=== PATIENT | female | born 1975 | race Caucasian/White ===

== ENCOUNTER 2017-11-28 21:05 | Emergency (ER) | payer BC, OTHER ==
[2017-11-28 22:24] LABS: #Basophils 0.1 thou/uL (0.0-0.2); #Eosinphils 0.1 thou/uL (0.0-0.7); #Lymphocytes 1.9 thou/uL (1.20-3.40); #Monocytes 0.7 thou/uL (0.11-0.59); #Neutrophils 2.9 thou/uL (1.40-6.50); %Basophils 0.9 % (0.0-1.0); %Eosinophils 1.2 % (0.0-10.0); %Lymphocytes 33.9 % (21.0-51.0); %Monocytes 12.7 % (0.0-10.0); %Neutrophils 51.3 % (42.0-75.0); Hemoglobin 14.8 g/dL (12.0-16.0); Mean Corpuscular HGB CONC 34.9 g/dL (32.0-36.0); Mean Corpuscular Hemoglobin 35.3 pg (27.0-31.0); Platelet Count 161 thou/uL (130-400); RBC Distribution Width 10.8 % (11.5-14.5); Red Blood Cell (RBC) Count 4.18 mill/uL (4.20-5.40); White Blood Cell (WBC) Count 5.7 thou/uL (4.8-10.8)
[2017-11-28 22:44] LABS: ALT (SGPT) 64 U/L (8-55); AST (SGOT) 72 U/L (5-34); Acetaminophen Less than 6.0 mcg/mL (10.0-30.0); Albumin 4.7 g/dL (3.5-5.0); Alcohol 273 mg/dL (Less than 10); Alkaline Phosphatase 39 U/L (40-150); Anion Gap 19 mmol/L (10-20); BUN (Urea Nitrogen) 20 mg/dL (7.0-18.7); Bilirubin, Total 0.6 mg/dL (0.2-1.2); CK (CPK) 103 U/L (29-168); Calc. Creatinine Clearance 0 mL/min (70-130); Calcium 9.5 mg/dL (7.8-10.44); Carbon Dioxide 24 mmol/L (22-29); Chloride 98 mmol/L (98-107); Estimated GFR-MDRD 67; Globulin 3.7 g/dL (2.4-3.5); Glucose 93 mg/dL (70-105); Protein, Total 8.4 g/dL (6.0-8.3); Salicylate Less than 8.0 mg/dL (15.0-30.0); Sodium 139 mmol/L (136-145)
[2017-11-28 22:44] LABS: Bilirubin Negative (Negative); Blood, Urine Negative (Negative); Clarity CLEAR (Clear); Glucose, Urine (Dipstick) Negative (Negative); Leukocyte Negative (Negative); Nitrite Negative (Negative); Protein, Urine (Dipstick) Negative (Neg-Trace); Specific Gravity, Urine 1.006 (1.002-1.036); Urobilinogen 0.2 mg/dL (0.2-1.0); pH, Urine 6.5 (5.0-9.0)
[2017-11-28 22:45] LABS: Pregnancy Test - Urine (BHCG) Negative (Negative); Pregu Control Background? CLEAR/WHITE (CLR/WHITE); Pregu Control Bar Appear? YES (CONTROL BAR); Specific Gravity 1.006 (1.002-1.036)
[2017-11-28 22:49] LABS: Potassium 2.4 mmol/L (3.5-5.1)
[2017-11-28 22:53] LABS: Amphetamine Not Detected (NotDetected); Barbiturates Screen Not Detected (NotDetected); Benzodiazepine Screen Detected (NotDetected); Cocaine Metabolite Screen Not Detected (NotDetected); Medtox Control Line Valid? VALID (VALID); Medtox Reader # READER 1; Methadone Not Detected (NotDetected); Methamphetamine Not Detected (NotDetected); Opiate Screen Not Detected (NotDetected); Oxycodone Screen Not Detected (NotDetected); Phencyclidine (PCP) Not Detected (NotDetected); THC/Cannabinoid Screen Not Detected (NotDetected); Tricyclic Screen Not Detected (NotDetected)
[2017-11-28] MEDS ORDERED: Potassium Chloride 20 MEQ TAB ONE (22:58)
--- NOTE | 2017-12-03 00:26 | EKG ---
Test Reason : Blood Pressure : / mmHG Vent. Rate : 087 BPM Atrial Rate : 087 BPM P-R Int : 118 ms QRS Dur : 084 ms QT Int : 390 ms P-R-T Axes : 068 057 060 degrees QTc Int : 469 ms Normal sinus rhythm Possible Left atrial enlargement Borderline ECG Confirmed by THAIS ORTIZ ([id number]), proposal editor ROSALINA JOSE ([id number] on 12/03/2017 12:25:27 AM Referred By: Confirmed By:THAIS ORTIZ
== END 2017-11-29 12:50 | disposition home or self-care (01) ==
LOC: ERS 21:05
DX: F43.20 Adjustment disorder, unspecified (principal); R44.0 Auditory hallucinations; F41.9 Anxiety disorder, unspecified
CPT/HCPCS: 36415; 80053; 80306; 80307; 81003; 81025; 82550; 84443; 85025; 93005; 96361; 96374

== ENCOUNTER 2020-01-24 22:13 | Inpatient (IN) | payer OTHER, SELFPAY ==
[2020-01-24 23:24] LABS: #Lymphocytes 0.8 thou/uL (1.20-3.40); #Monocytes 0.3 thou/uL (0.11-0.59); #Neutrophils 8.1 thou/uL (1.40-6.50); %Basophils 0.1 % (0.0-1.0); %Eosinophils 0.1 % (0.0-10.0); %Lymphocytes 8.2 % (21.0-51.0); %Monocytes 3.3 % (0.0-10.0); %Neutrophils 88.2 % (42.0-75.0); Hemoglobin 12.5 g/dL (12.0-16.0); MDiff Complete? YES; Macrocytosis SLIGHT = 6-15 cells (100X) (0-5/hpf); Mean Corpuscular HGB CONC 32.7 g/dL (32.0-36.0); Mean Corpuscular Hemoglobin 35.5 pg (27.0-31.0); Mean Platelet Volume 8.1 fL (7.4-10.4); Platelet Count 97 thou/uL (130-400); Platelet Morphology Comment Appears Decreased; RBC Distribution Width 11.7 % (11.5-14.5); Red Blood Cell (RBC) Count 3.52 mill/uL (4.20-5.40); White Blood Cell (WBC) Count 9.2 thou/uL (4.8-10.8)
[2020-01-24 23:26] LABS: Bacteria/HPF None Seen HPF (None Seen); Bilirubin Negative (Negative); Blood, Urine Trace (Negative); Clarity Clear (Clear); Glucose, Urine (Dipstick) Normal (Negative); Leukocyte Negative Leu/uL (Negative); Nitrite Negative (Negative); Protein, Urine (Dipstick) 100 mg/dL (Neg-Trace); RBC/HPF None Seen HPF (0-3); Urobilinogen Normal mg/dL (Less than 2); WBC/HPF 0-3 HPF (0-3)
[2020-01-24 23:30] LABS: ALT (SGPT) 39 U/L (8-55); AST (SGOT) 75 U/L (5-34); Albumin 4.9 g/dL (3.5-5.0); Alkaline Phosphatase 39 U/L (40-110); Anion Gap 33 mmol/L (10-20); BUN (Urea Nitrogen) 9 mg/dL (7.0-18.7); Bilirubin, Total 1.2 mg/dL (0.2-1.2); Calc. Creatinine Clearance 0 mL/min (70-130); Calcium 8.4 mg/dL (7.8-10.44); Carbon Dioxide 14 mmol/L (22-29); Chloride 96 mmol/L (98-107); Estimated GFR-MDRD 76; Globulin 3.7 g/dL (2.4-3.5); Glucose 140 mg/dL (70-105); Lipase 42 U/L (8-78); Potassium 3.5 mmol/L (3.5-5.1); Protein, Total 8.6 g/dL (6.0-8.3); Sodium 139 mmol/L (136-145)
[2020-01-24] MEDS ORDERED: Ondansetron PF 4 MG/2 ML Vial ONE (23:40)
[2020-01-24 23:44] LABS: Pregnancy Test - Urine (BHCG) Negative (Negative); Pregu Control Background? CLEAR/WHITE (CLR/WHITE); Pregu Control Bar Appear? YES (CONTROL BAR)
[2020-01-25] MEDS ORDERED: Ondansetron PF 4 MG/2 ML Vial ONE (00:25)
[2020-01-25] MEDS ORDERED: Lorazepam 2 MG/ML VIAL ONE (00:34)
[2020-01-25] MEDS ORDERED: Multivitamins, Adult 10 ML, Thiamine HCl 100 MG, Folic Acid 1 MG in Dextrose 5 %-0.45 %... IV SCH (01:00)
[2020-01-25] MEDS ORDERED: Ondansetron PF 4 MG/2 ML Vial IVP PRN (01:47)
[2020-01-25 02:08] LABS: #Basophils 0.1 thou/uL (0.0-0.2); #Lymphocytes 0.4 thou/uL (1.20-3.40); #Monocytes 0.4 thou/uL (0.11-0.59); %Basophils 0.7 % (0.0-1.0); %Eosinophils 0.1 % (0.0-10.0); %Lymphocytes 4.6 % (21.0-51.0); %Monocytes 5.1 % (0.0-10.0); %Neutrophils 89.5 % (42.0-75.0); Hemoglobin 11.8 g/dL (12.0-16.0); Mean Corpuscular HGB CONC 33.8 g/dL (32.0-36.0); Mean Corpuscular Hemoglobin 36.1 pg (27.0-31.0); Mean Platelet Volume 7.4 fL (7.4-10.4); Platelet Count 69 thou/uL (130-400); RBC Distribution Width 11.5 % (11.5-14.5); Red Blood Cell (RBC) Count 3.27 mill/uL (4.20-5.40); White Blood Cell (WBC) Count 7.9 thou/uL (4.8-10.8)
[2020-01-25] MEDS ORDERED: cloNIDine 0.1 MG TAB PO PRN (02:18)
[2020-01-25 02:36] LABS: ALT (SGPT) 36 U/L (8-55); AST (SGOT) 65 U/L (5-34); Albumin 4.7 g/dL (3.5-5.0); Alkaline Phosphatase 36 U/L (40-110); Anion Gap 25 mmol/L (10-20); BUN (Urea Nitrogen) 7 mg/dL (7.0-18.7); Bilirubin, Total 0.9 mg/dL (0.2-1.2); Calc. Creatinine Clearance 0 mL/min (70-130); Carbon Dioxide 14 mmol/L (22-29); Chloride 101 mmol/L (98-107); Estimated GFR-MDRD 85; Globulin 3.4 g/dL (2.4-3.5); Glucose 159 mg/dL (70-105); Potassium 3.9 mmol/L (3.5-5.1); Protein, Total 8.1 g/dL (6.0-8.3); Sodium 136 mmol/L (136-145)
[2020-01-25 03:11] VITALS: BMI 19.8
[2020-01-25] MEDS: Sodium Chloride 0.9% 1,000 ML IV SCH ×4 (05:18→20:14)
[2020-01-25] MEDS: Lorazepam 2 MG/ML VIAL SLOW IVP PRN ×2 (05:18→12:20)
[2020-01-25] MEDS ORDERED: Magnesium Sulfate 4 GM in Sodium Chloride 0.9% 250 ML 250 ML IVPB SCH (06:00)
--- NOTE | 2020-01-25 06:26 | HP ---
CHIEF COMPLAINT: Nausea and vomiting. HISTORY OF PRESENT ILLNESS: Ms. Sparrow is a 44-year-old female with past medical history of alcohol dependence/abuse, presents to the emergency room with intractable nausea and vomiting for the last 2 days. Symptoms worse today. The patient drinks alcohol daily, last drink was last night. Workup in the emergency room, the patient appears dehydrated, tremulous, anxious. The patient's labs showed elevated anion gap of 33, elevated ketones, elevated transaminases. The patient is on IV fluids, given Ativan, given IV Zofran. The patient is being admitted in the hospital for further management. PAST MEDICAL HISTORY: 1. Alcohol abuse/dependence. 2. Anxiety. PAST SURGICAL HISTORY: Reviewed and noncontributory. PAST PSYCHIATRIC HISTORY: Anxiety. SOCIAL HISTORY: She drinks alcohol daily, about 5 drinks per day. Denies other drug use. No smoking history. FAMILY HISTORY: Reviewed and noncontributory. HOME MEDICATIONS: Please see home medication reconciliation form for updated medications. REVIEW OF SYSTEMS: Review of 14 systems negative except what is mentioned in history of present illness. PHYSICAL EXAMINATION: GENERAL: The patient is awake, alert, in moderate distress, anxious, tremulous. VITAL SIGNS: Blood pressure 166/105, heart rate is 110, respiratory rate 20, oxygen saturation 99% on room air, temperature 98.5. HEAD AND NECK: Normocephalic, atraumatic. NECK: Supple. No JVD. CHEST: Fair bilateral air entry. HEART: S1, S2. Regular. ABDOMEN: Soft and nontender. Bowel sounds present. NEUROLOGIC: Awake, alert, oriented x4. No focal deficits. PSYCHIATRIC: Anxious. GENITOURINARY: No suprapubic tenderness. No flank tenderness. LABORATORY DATA: As mentioned above in history of present illness. ASSESSMENT: 1. Alcoholic ketoacidosis. 2. Alcohol dependence with withdrawal. 3. Hypertension. 4. Tachycardia. 5. Intractable nausea and vomiting. 6. Dehydration. 7. Anxiety. PLAN: 1. Admit to IMCU. 2. Fall and seizure precautions. 3. Continue IV fluid hydration. 4. IV benzodiazepine as needed. 5. Monitor and control blood pressure. 6. Reconcile home medications. 7. DVT prophylaxis as appropriate. 8. Expected length of stay, two midnights or more. Job ID: [id number]
[2020-01-25] MEDS: Magnesium Oxide 400 MG TAB PO SCH (08:02)
[2020-01-25] MEDS: Famotidine/PF 20 mg/2ml Vial SLOW IVP SCH ×2 (08:02→20:14)
[2020-01-25] MEDS: chlordiazePOXIDE HCl 25 MG CAP PO SCH ×3 (08:02→20:14)
[2020-01-25] MEDS ORDERED: Diazepam 5 MG TAB PO PRN (09:15)
[2020-01-25] MEDS ORDERED: Benzonatate 100 MG CAP PO PRN (09:18)
--- NOTE | 2020-01-25 10:17 | RAD ---
PORTABLE CHEST ONE VIEW: 01/25/2020 9:50 a.m. HISTORY: Cough. FINDINGS: The heart size is normal. The lungs are well expanded without lobar consolidation, pneumothoraces or pleural effusions. IMPRESSION: No acute process. POS: OFF
[2020-01-25] MEDS: Multivitamins, Adult 10 ML, Folic Acid 1 MG, Thiamine HCl 100 MG in Dextrose 5 %-0.45 %... IV SCH (12:20)
[2020-01-25 13:12] LABS: Amphetamine Not Detected (NotDetected); Barbiturates Screen Not Detected (NotDetected); Benzodiazepine Screen Detected (NotDetected); Cocaine Metabolite Screen Not Detected (NotDetected); Medtox Control Line Valid? VALID (VALID); Medtox Reader # READER 4; Methadone Not Detected (NotDetected); Methamphetamine Not Detected (NotDetected); Opiate Screen Not Detected (NotDetected); Oxycodone Screen Not Detected (NotDetected); Phencyclidine (PCP) Not Detected (NotDetected); THC/Cannabinoid Screen Not Detected (NotDetected); Tricyclic Screen Not Detected (NotDetected)
[2020-01-26] MEDS: Sodium Chloride 0.9% 1,000 ML IV SCH ×2 (02:21→08:12)
[2020-01-26 02:36] VITALS: BP 137/118
[2020-01-26] MEDS: chlordiazePOXIDE HCl 25 MG CAP PO SCH ×3 (08:12→20:14)
[2020-01-26] MEDS: Escitalopram Oxalate 10 mg Tablet PO SCH (08:12)
[2020-01-26] MEDS: Magnesium Oxide 400 MG TAB PO SCH (08:12)
[2020-01-26] MEDS: Famotidine/PF 20 mg/2ml Vial SLOW IVP SCH ×2 (08:12→20:15)
[2020-01-26] MEDS ORDERED: Magnesium 2 GM/50 ML 2 GM in Premix Bag 1 BAG IVPB SCH (09:30)
[2020-01-26 09:53] LABS: #Eosinphils 0.1 thou/uL (0.0-0.7); #Lymphocytes 0.7 thou/uL (1.20-3.40); #Monocytes 0.5 thou/uL (0.11-0.59); #Neutrophils 2.7 thou/uL (1.40-6.50); %Basophils 0.6 % (0.0-1.0); %Eosinophils 2.1 % (0.0-10.0); %Lymphocytes 17.9 % (21.0-51.0); %Monocytes 13.3 % (0.0-10.0); %Neutrophils 66.2 % (42.0-75.0); Hemoglobin 11.5 g/dL (12.0-16.0); Mean Corpuscular HGB CONC 33.8 g/dL (32.0-36.0); Mean Corpuscular Hemoglobin 35.9 pg (27.0-31.0); Mean Platelet Volume 7.8 fL (7.4-10.4); Platelet Count 73 thou/uL (130-400); RBC Distribution Width 11.4 % (11.5-14.5); Red Blood Cell (RBC) Count 3.19 mill/uL (4.20-5.40)
[2020-01-26 10:15] LABS: ALT (SGPT) 27 U/L (8-55); AST (SGOT) 41 U/L (5-34); Albumin 4.2 g/dL (3.5-5.0); Alkaline Phosphatase 32 U/L (40-110); Anion Gap 13 mmol/L (10-20); BUN (Urea Nitrogen) Less than 4 mg/dL (7.0-18.7); Bilirubin, Total 0.9 mg/dL (0.2-1.2); Calc. Creatinine Clearance 85 mL/min (70-130); Calcium 7.1 mg/dL (7.8-10.44); Carbon Dioxide 19 mmol/L (22-29); Chloride 107 mmol/L (98-107); Estimated GFR-MDRD Greater than 90; Globulin 2.9 g/dL (2.4-3.5); Glucose 127 mg/dL (70-105); Protein, Total 7.1 g/dL (6.0-8.3); Sodium 136 mmol/L (136-145)
[2020-01-26 10:22] LABS: Potassium 2.9 mmol/L (3.5-5.1)
[2020-01-26] MEDS ORDERED: Potassium Chloride 20 MEQ TAB PO SCH (10:45)
[2020-01-26] MEDS: Multivitamins, Adult 10 ML, Folic Acid 1 MG, Thiamine HCl 100 MG in Dextrose 5 %-0.45 %... IV SCH (12:07)
--- NOTE | 2020-01-26 12:31 | PDOC.HOSPP ---
- Subjective Encounter Date: 01/25/20 Encounter Time: 11:15 Subjective: pt up in bed states she has no appetite. - Objective Vital Signs & Weight: Vital Signs (12 hours) Temp Pulse Ox 01/26/20 11:06 98.2 F 01/26/20 08:00 100 01/26/20 07:01 98.6 F 01/26/20 03:43 97.4 F L Weight Weight 108 lb 3.2 oz Most Recent Monitor Data Heart Rate from ECG 97 NIBP 126/84 NIBP BP-Mean 98 Respiration from ECG 16 SpO2 100 I&O: 01/25/20 01/26/20 01/27/20 06:59 06:59 06:59 Intake Total 2400 Output Total 1850 Balance 550 Result Diagrams: 01/26/20 09:39 01/26/20 09:39 Hospitalist ROS - Review of Systems Cardiovascular: denies: chest pain, palpitations, orthopnea, paroxysmal noc. dyspnea, edema, light headedness, other Gastrointestinal: reports: nausea, vomiting. denies: abdominal pain, diarrhea, constipation, melena, hematochezia, other - Medication Medications: Active Medications Generic Name Dose Route Start Last Admin Trade Name Freq PRN Reason Stop Dose Admin Benzonatate 100 mg 01/25/20 09:18 01/25/20 20:21 Tessalon PO 100 mg TIDPRN PRN Administration Cough Chlordiazepoxide HCl 25 mg 01/25/20 09:00 01/26/20 08:12 Librium PO 25 mg TID ED Administration Diazepam 5 mg 01/25/20 09:15 01/26/20 00:40 Valium PO 5 mg QID PRN Administration Anxiety Escitalopram Oxalate 10 mg 01/26/20 09:00 01/26/20 08:12 Lexapro PO 10 mg DAILY ED Administration Famotidine 20 mg 01/25/20 09:00 01/26/20 08:12 Pepcid SLOW IVP 20 mg Q12HR ED Administration Multivitamins 10 ml/ Folic 1,011.2 mls @ 125 mls/hr 01/25/20 12:00 01/26/20 12:07 Acid 1 mg/ Thiamine HCl 100 mg IV 1,011.2 mls / Dextrose/Sodium Chloride Q24HR ED Administration Lorazepam 1 mg 01/25/20 01:51 01/25/20 12:20 Ativan SLOW IVP 1 mg Q2H PRN Administration Anxiety/Agitation Magnesium Oxide 400 mg 01/25/20 09:00 01/26/20 08:12 Magnesium Oxide PO 400 mg DAILY ED Administration Potassium Chloride 40 meq 01/26/20 10:45 01/26/20 12:07 K-Dur PO 01/26/20 12:45 40 meq NOW ED Administration Sodium Chloride 10 ml 01/25/20 21:00 01/26/20 08:13 Flush - Normal Saline IVF 10 ml Q12HR ED Administration - Exam Heart: negative: RRR, no murmur, no gallops, no rubs, normal peripheral pulses, irregular, diminshed peripheral pulses, murmur present, II/IV, III/IV Respiratory: negative: CTAB, no wheezes, no rales, no ronchi, normal chest expansion, no tachypnea, normal percussion, rales, rhonchi, tachypneic, wheezes Gastrointestinal: negative: soft, non-tender, non-distended, normal bowel sounds , no palpable masses, no hepatomegaly, no splenomegaly, no bruit, no guarding, no rigidity, tender to palpation, distended, diminished bowl sounds, voluntary guarding Extremities: negative: no cyanosis, no clubbing, no edema, 1+ LE edema, 2+ LE edema, clubbing Hosp A/P (1) Alcoholic ketoacidosis Code(s): E87.2 - ACIDOSIS Status: Acute (2) Nausea & vomiting Code(s): R11.2 - NAUSEA WITH VOMITING, UNSPECIFIED Status: Acute (3) Tachycardia Code(s): R00.0 - TACHYCARDIA, UNSPECIFIED Status: Acute (4) Alcohol abuse Code(s): F10.10 - ALCOHOL ABUSE, UNCOMPLICATED Status: Acute (5) Hypokalemia Code(s): E87.6 - HYPOKALEMIA Status: Acute (6) Hypomagnesemia Code(s): E83.42 - HYPOMAGNESEMIA Status: Acute - Plan will continue banana bag, will replace K. pt is also on withdrawal protocol. will advance diet if she tolerates it.
--- NOTE | 2020-01-26 12:36 | PDOC.HOSPP ---
- Subjective Encounter Date: 01/26/20 Encounter Time: 12:30 Subjective: pt up in bed feels well today. - Objective Vital Signs & Weight: Vital Signs (12 hours) Temp Pulse Ox 01/26/20 11:06 98.2 F 01/26/20 08:00 100 01/26/20 07:01 98.6 F 01/26/20 03:43 97.4 F L Weight Weight 108 lb 3.2 oz Most Recent Monitor Data Heart Rate from ECG 97 NIBP 126/84 NIBP BP-Mean 98 Respiration from ECG 16 SpO2 100 I&O: 01/25/20 01/26/20 01/27/20 06:59 06:59 06:59 Intake Total 2400 Output Total 1850 Balance 550 Result Diagrams: 01/26/20 09:39 01/26/20 09:39 Hospitalist ROS - Review of Systems Cardiovascular: denies: chest pain, palpitations, orthopnea, paroxysmal noc. dyspnea, edema, light headedness, other Gastrointestinal: denies: nausea, vomiting, abdominal pain, diarrhea, constipation, melena, hematochezia, other Genitourinary: denies: dysuria, frequency, incontinence, hematuria, retention, other - Medication Medications: Active Medications Generic Name Dose Route Start Last Admin Trade Name Freq PRN Reason Stop Dose Admin Benzonatate 100 mg 01/25/20 09:18 01/25/20 20:21 Tessalon PO 100 mg TIDPRN PRN Administration Cough Chlordiazepoxide HCl 25 mg 01/25/20 09:00 01/26/20 08:12 Librium PO 25 mg TID ED Administration Diazepam 5 mg 01/25/20 09:15 01/26/20 00:40 Valium PO 5 mg QID PRN Administration Anxiety Escitalopram Oxalate 10 mg 01/26/20 09:00 01/26/20 08:12 Lexapro PO 10 mg DAILY ED Administration Famotidine 20 mg 01/25/20 09:00 01/26/20 08:12 Pepcid SLOW IVP 20 mg Q12HR ED Administration Multivitamins 10 ml/ Folic 1,011.2 mls @ 125 mls/hr 01/25/20 12:00 01/26/20 12:07 Acid 1 mg/ Thiamine HCl 100 mg IV 1,011.2 mls / Dextrose/Sodium Chloride Q24HR ED Administration Lorazepam 1 mg 01/25/20 01:51 01/25/20 12:20 Ativan SLOW IVP 1 mg Q2H PRN Administration Anxiety/Agitation Magnesium Oxide 400 mg 01/25/20 09:00 01/26/20 08:12 Magnesium Oxide PO 400 mg DAILY ED Administration Potassium Chloride 40 meq 01/26/20 10:45 01/26/20 12:07 K-Dur PO 01/26/20 12:45 40 meq NOW ED Administration Sodium Chloride 10 ml 01/25/20 21:00 01/26/20 08:13 Flush - Normal Saline IVF 10 ml Q12HR ED Administration - Exam Heart: negative: RRR, no murmur, no gallops, no rubs, normal peripheral pulses, irregular, diminshed peripheral pulses, murmur present, II/IV, III/IV Respiratory: negative: CTAB, no wheezes, no rales, no ronchi, normal chest expansion, no tachypnea, normal percussion, rales, rhonchi, tachypneic, wheezes Gastrointestinal: negative: soft, non-tender, non-distended, normal bowel sounds , no palpable masses, no hepatomegaly, no splenomegaly, no bruit, no guarding, no rigidity, tender to palpation, distended, diminished bowl sounds, voluntary guarding Hosp A/P (1) Alcoholic ketoacidosis Code(s): E87.2 - ACIDOSIS Status: Acute (2) Nausea & vomiting Code(s): R11.2 - NAUSEA WITH VOMITING, UNSPECIFIED Status: Acute (3) Tachycardia Code(s): R00.0 - TACHYCARDIA, UNSPECIFIED Status: Acute (4) Alcohol abuse Code(s): F10.10 - ALCOHOL ABUSE, UNCOMPLICATED Status: Acute (5) Hypokalemia Code(s): E87.6 - HYPOKALEMIA Status: Acute (6) Hypomagnesemia Code(s): E83.42 - HYPOMAGNESEMIA Status: Acute - Plan will continue banana bag, will replace K. pt is also on withdrawal protocol. will advance diet if she tolerates it. 01/25 pt was able to tolerate some food. will continue iv fluids for one more day then discharge in am. will replace her electrolytes.
[2020-01-26] MEDS: Potassium Chloride 20 MEQ TAB PO SCH (18:01)
[2020-01-27 04:36] LABS: ALT (SGPT) 35 U/L (8-55); AST (SGOT) 67 U/L (5-34); Albumin 4.1 g/dL (3.5-5.0); Alkaline Phosphatase 29 U/L (40-110); Anion Gap 13 mmol/L (10-20); BUN (Urea Nitrogen) 5 mg/dL (7.0-18.7); Calc. Creatinine Clearance 89 mL/min (70-130); Calcium 7.4 mg/dL (7.8-10.44); Carbon Dioxide 21 mmol/L (22-29); Chloride 109 mmol/L (98-107); Estimated GFR-MDRD Greater than 90; Globulin 2.9 g/dL (2.4-3.5); Glucose 94 mg/dL (70-105); Potassium 3.6 mmol/L (3.5-5.1); Sodium 139 mmol/L (136-145)
[2020-01-27] MEDS: Potassium Chloride 20 MEQ TAB PO SCH (09:04)
[2020-01-27] MEDS: Magnesium Oxide 400 MG TAB PO SCH (09:04)
[2020-01-27] MEDS: Escitalopram Oxalate 10 mg Tablet PO SCH (09:04)
[2020-01-27] MEDS: chlordiazePOXIDE HCl 25 MG CAP PO SCH (09:05)
[2020-01-27] MEDS: Famotidine/PF 20 mg/2ml Vial SLOW IVP SCH (09:06)
[2020-01-27 10:43] VITALS: TEMP 97.8
--- NOTE | 2020-01-27 21:34 | DIS ---
DATE OF ADMISSION: 01/25/2020 DATE OF DISCHARGE: 01/27/2020 DISCHARGE DIAGNOSES: As of the followin. Alcohol ketosis. 2. Alcohol abuse. 3. Nausea, vomiting. 4. Tachycardia, resolved. 5. Hypokalemia. 6. Hypomagnesemia. HOSPITAL COURSE: The patient is a 44-year-old female who initially presented to the hospital on 01/24 with nausea and vomiting. At this time, she was found to have significant alcoholic ketoacidosis. She was put on IV hydration. Her nausea, vomiting resolved. She was able to tolerate her oral food without any difficulties. She was also put on an alcohol withdrawal protocol. She was educated upon stopping the alcohol use given her significant ketosis. Her lipase was normal. She will be discharged home. She will follow up with her primary. Her electrolytes were replaced and they were stable on the day of discharge. HOME MEDICATIONS: She is on Lexapro, which I have continued. PHYSICAL EXAMINATION: VITAL SIGNS: Temperature 98.7, her blood pressure is 116/96, heart rate of 90. The patient left before me examining her and I have asked her to follow up nurses with her primary care and also to stop alcohol use. Job ID: [id number]
== END 2020-01-27 10:48 | disposition home or self-care (01) | DRG 641 ==
LOC: ERS 22:13 → IMCU/EMU 01-25 01:50
PROVIDERS: ADMIT Internal Medicine; ATTEND Internal Medicine
PROC: HZ2ZZZZ Detoxification Services for Substance Abuse Treatment (ICD-10-PCS; principal; 2020-01-25)
DX: E87.2 Acidosis (principal); F10.239 Alcohol dependence with withdrawal, unspecified; F41.9 Anxiety disorder, unspecified; E86.0 Dehydration; E87.6 Hypokalemia; E83.42 Hypomagnesemia; R00.0 Tachycardia, unspecified
CPT/HCPCS: 36415; 71045; 80053; 80306; 81003; 81015; 81025; 82010; 83605; 83690; 83735; 85025; 94760; J2060; J2405; J3411; J3475; J7042; J7050; S0028

== ENCOUNTER 2020-03-31 11:40 | Inpatient (IN) | payer OTHER, SELFPAY ==
[2020-03-31] MEDS ORDERED: Ondansetron PF 4 MG/2 ML Vial ONE (11:56)
[2020-03-31] MEDS ORDERED: Lorazepam 2 MG/ML VIAL ONE (12:07)
[2020-03-31 12:32] LABS: BHCG - Serum Negative (NEGATIVE); Pregs Control Background? CLEAR/WHITE (CLR/WHITE); Pregs Control Bar Appear? YES (CONTROL BAR)
--- NOTE | 2020-03-31 12:33 | RAD ---
EXAM: Single view of the chest HISTORY: Cough COMPARISON: 01/25/2020 FINDINGS: Single view of the chest shows a normal sized cardiomediastinal silhouette. There is no hortencia dence of consolidation, mass, or pleural effusion. The bones are unremarkable IMPRESSION: No evidence of acute cardiopulmonary disease
[2020-03-31 12:38] LABS: Acetaminophen Less than 6.0 mcg/mL (10.0-30.0); Alcohol Less than 10 mg/dL (Less than 10); Salicylate Less than 8.0 mg/dL (15.0-30.0)
[2020-03-31 12:43] LABS: ALT (SGPT) 18 U/L (8-55); AST (SGOT) 30 U/L (5-34); Albumin 5.3 g/dL (3.5-5.0); Alkaline Phosphatase 52 U/L (40-110); Anion Gap 30 mmol/L (10-20); BUN (Urea Nitrogen) 9 mg/dL (7.0-18.7); Bilirubin, Total 1.1 mg/dL (0.2-1.2); Calc. Creatinine Clearance 0 mL/min (70-130); Calcium 9.4 mg/dL (7.8-10.44); Carbon Dioxide 15 mmol/L (22-29); Chloride 90 mmol/L (98-107); Estimated GFR-MDRD 74; Globulin 4.5 g/dL (2.4-3.5); Glucose 144 mg/dL (70-105); Potassium 3.2 mmol/L (3.5-5.1); Protein, Total 9.8 g/dL (6.0-8.3); Sodium 132 mmol/L (136-145)
[2020-03-31 13:02] LABS: CKMB 1.5 ng/mL (0-6.6)
[2020-03-31 13:06] LABS: #Lymphocytes 0.7 thou/uL (1.20-3.40); #Monocytes 0.7 thou/uL (0.11-0.59); #Neutrophils 9.7 thou/uL (1.40-6.50); %Eosinophils 0.1 % (0.0-10.0); %Lymphocytes 5.9 % (21.0-51.0); Hemoglobin 14.7 g/dL (12.0-16.0); Mean Corpuscular HGB CONC 33.9 g/dL (32.0-36.0); Mean Corpuscular Hemoglobin 35.4 pg (27.0-31.0); Mean Platelet Volume 7.8 fL (7.4-10.4); Platelet Count 117 thou/uL (130-400); Platelet Morphology Comment Appears Decreased; RBC Distribution Width 11.5 % (11.5-14.5); RBC Morphology Normal; Red Blood Cell (RBC) Count 4.15 mill/uL (4.20-5.40)
[2020-03-31] MEDS ORDERED: Potassium Chloride 20 MEQ TAB ONE (13:11)
[2020-03-31] MEDS ORDERED: Aspirin Chewable 81 MG TAB ONE (13:11)
[2020-03-31] MEDS ORDERED: Thiamine HCl 200 MG/2 ML VIAL SLOW IVP SCH (13:15)
[2020-03-31 13:33] LABS: Bicarbonate (HCO3v) 17.4 mmol/L (22.0-28.0); Calcium, Ionized 0.97 mmol/L (See Comments:); Chloride 101 mmol/L (98-107); Hemoglobin - Calc 13.4 g/dL (12.0-16.0); Potassium 3.4 mmol/L (3.5-5.1); Sodium 132 mmol/L (138-145); T. Carbon Dioxide 18.3 mmol/L (22.0-28.0); vO2 Saturation-calc 62.7 % (60.0-85.0)
[2020-03-31 13:45] LABS: Bacteria/HPF None Seen HPF (None Seen); Bilirubin Negative (Negative); Blood, Urine 2+ (Negative); Clarity Clear (Clear); Glucose, Urine (Dipstick) Normal (Negative); Ketone, Urine Greater than 150 mg/dL (Negative); Leukocyte Negative Leu/uL (Negative); Nitrite Negative (Negative); Protein, Urine (Dipstick) Greater than 600 mg/dL (Neg-Trace); Specific Gravity, Urine 1.023 (1.002-1.036); Squamous Epithelial 0-3 HPF (0-3); Urobilinogen Normal mg/dL (Less than 2)
[2020-03-31 15:37] LABS: Anion Gap 23 mmol/L (10-20); BUN (Urea Nitrogen) 8 mg/dL (7.0-18.7); Calc. Creatinine Clearance 0 mL/min (70-130); Carbon Dioxide 15 mmol/L (22-29); Chloride 98 mmol/L (98-107); Estimated GFR-MDRD 86; Glucose 100 mg/dL (70-105); Potassium 3.5 mmol/L (3.5-5.1); Sodium 132 mmol/L (136-145)
[2020-03-31 15:43] LABS: Troponin I 0.025 ng/mL (< 0.028)
--- NOTE | 2020-03-31 17:17 | HP ---
CHIEF COMPLAINT: Nausea and vomiting. HISTORY OF PRESENT ILLNESS: Ms. Sparrow is a 44-year-old female with medical history of alcohol abuse and alcohol withdrawal, who presented with nausea and vomiting since yesterday. The patient drank alcohol heavily 2 days ago and the day following consumption developed multiple episodes of nausea and vomiting. Over the course of the day, she became progressively weak and anxious. Considering her past experiences with alcohol withdrawal, she came to the ED to obtain treatment. On encounter, the patient is lying comfortably in bed and has no complaints. She denies fever, chills, night sweats, chest pain, palpitations, recent falls, presyncope, syncope, shortness of breath, abdominal pain, hematemesis, hematochezia, melena, focal weakness, visual or auditory hallucinations, agitation, motor hyperactivity, significant tremors, extremity tremors, tactile disturbances, headache, or confusion. EMERGENCY DEPARTMENT COURSE: In the ED, the patient was found to be mildly anxious and tachycardic. Serum alcohol levels were zero. She was admitted to telemetry for further observation. REVIEW OF SYSTEMS: Full review of system was carried out and was negative with the exception of that mentioned in the HPI. PAST MEDICAL HISTORY: 1. Alcohol abuse. 2. Alcohol withdrawal. 3. Anxiety. PAST SURGICAL HISTORY: No surgical history. SOCIAL HISTORY: Drinks alcohol daily about 5 drinks daily. Denies smoking or recreational drug use. FAMILY HISTORY: Diabetes on maternal side, otherwise unremarkable. HOME MEDICATIONS: Reconciled in the EMR. ALLERGIES: NO KNOWN DRUG ALLERGIES. PHYSICAL EXAMINATION: VITAL SIGNS: Blood pressure was 120/80, pulse 116, respiratory rate 18, oxygen saturation 99% on room air, temperature was 98.4. GENERAL APPEARANCE: Lying comfortably in bed, mildly anxious, awake and alert. HEENT: Normocephalic, atraumatic. No JVD. CARDIAC: Regular rhythm. Tachycardic (sinus tachycardia on telemetry). No murmur, rubs, or gallops. LUNGS: Clear to auscultation bilaterally. No wheezing, rales, or rhonchi. ABDOMEN: Soft, nontender, nondistended. Normal bowel sounds. EXTREMITIES: Mild upper extremity tremor on extension. No edema. PSYCHIATRIC: Mildly anxious. Alert and oriented x3. LABORATORY AND IMAGING STUDIES: Labs and imaging were reviewed. Of note, the patient had an anion-gap acidosis with elevated beta hydroxybutyrate. Chest x-ray showed no acute cardiopulmonary process. ASSESSMENT AND PLAN: Ms. Sparrow is a 44-year-old female with a medical history of alcohol withdrawal, who presented with alcohol withdrawal and alcohol ketoacidosis. 1. Alcohol withdrawal. The patient exhibits mild symptoms of alcohol withdrawal. ALIYA at this point is lower than 7. Plan;. a. Start banana bag. b. Start Ativan 2 mg p.o. q.4 hours p.r.n. ALIYA greater than 7. c. Supportive care. 2. Alcoholic ketosis. The patient's labs are consistent with anion-gap acidosis as a result of alcoholic ketosis. Plan;. a. Supportive measures. 3. Disposition/prophylaxis. a. Full code. b. Gastrointestinal prophylaxis, not indicated. c. Deep venous thrombosis prophylaxis, Lovenox. Job ID: [id number]
[2020-03-31 17:31] VITALS: BMI 21.1
[2020-03-31] MEDS ORDERED: Acetaminophen 325 MG TAB PO PRN (17:32)
[2020-03-31] MEDS ORDERED: Ondansetron ODT 4 MG TAB PO PRN (17:32)
[2020-03-31] MEDS ORDERED: Ondansetron PF 4 MG/2 ML Vial IVP PRN (17:32)
[2020-03-31] MEDS ORDERED: Lorazepam 1 MG TAB PO PRN (17:32)
[2020-03-31] MEDS ORDERED: Multivitamins, Adult 10 ML, Folic Acid 1 MG, Thiamine HCl 100 MG in Dextrose 5 %-0.45 %... IV SCH (18:30)
[2020-03-31 18:38] LABS: Troponin I 0.024 ng/mL (< 0.028)
[2020-03-31] MEDS: Dextrose 5 %-0.45 % NaCl 1,000 ML IV SCH (20:29)
[2020-04-01] MEDS: Dextrose 5 %-0.45 % NaCl 1,000 ML IV SCH (01:33)
[2020-04-01 05:03] LABS: Anion Gap 16 mmol/L (10-20); BUN (Urea Nitrogen) 9 mg/dL (7.0-18.7); Calc. Creatinine Clearance 93 mL/min (70-130); Calcium 8.3 mg/dL (7.8-10.44); Carbon Dioxide 20 mmol/L (22-29); Chloride 104 mmol/L (98-107); Estimated GFR-MDRD Greater than 90; Glucose 115 mg/dL (70-105); Potassium 3.7 mmol/L (3.5-5.1); Sodium 136 mmol/L (136-145)
[2020-04-01 08:44] VITALS: BP 138/88; TEMP 98.2
[2020-04-01] MEDS ORDERED: Escitalopram Oxalate 20 mg Tablet PO SCH (09:00)
[2020-04-01] MEDS ORDERED: Enoxaparin Sodium 30 MG/0.3 ML SYRINGE SC SCH (09:00)
[2020-04-01 13:15] LABS: SARS-CoV-2 MS2 Positive; SARS-CoV-2 N Gene Negative; SARS-CoV-2 S Gene Negative; SARS-CoV-2 by NAA Not Detected (NotDetected); SARS-CoV-2 orf1ab Negative
--- NOTE | 2020-04-01 22:18 | DIS ---
DATE OF ADMISSION: 03/31/2020 DATE OF DISCHARGE: 04/01/2020 HOSPITAL COURSE: Ms. Sparrow is a 44-year-old female with a medical history of alcohol withdrawal, who presented with alcohol withdrawal and alcoholic ketosis. She was treated with a banana bag, fluids, and Ativan, which she required a single dose also. She was observed overnight and felt well. Considering 48 hours past after her last drink, and nonprogression of overall withdrawal and resolution of ketosis, she was discharged hemodynamically stable with no complaints. Prior to discharge, she was educated regarding the effects of alcohol and seeking help. PHYSICAL EXAMINATION: VITAL SIGNS: Blood pressure 138/88, pulse 108, respiratory rate 20, and oxygen saturation 99% on room air, and temperature 98.2. GENERAL APPEARANCE: Lying comfortably in bed. Awake and alert. HEENT: Normocephalic and atraumatic. CARDIAC: Regular rhythm, tachycardic. No murmurs, gallops, or rubs. LUNGS: Clear to auscultation bilaterally. No wheezing, rales, or rhonchi. ABDOMEN: Soft, nontender, and nondistended. Normal bowel sounds. MEDICATION LIST: New medications, no new medications. Old medications; 1. Lexapro. 2. Toprol. Modified medications, no modified medication. Discontinued medications, no discontinued medications. Job ID: [id number]
== END 2020-04-01 14:30 | disposition home or self-care (01) | DRG 897 ==
LOC: ERS 11:40 → ERHOLD 15:03 → 2NO 17:08
PROVIDERS: ADMIT Internal Medicine; ATTEND Internal Medicine
PROC: HZ2ZZZZ Detoxification Services for Substance Abuse Treatment (ICD-10-PCS; principal; 2020-03-31)
DX: F10.239 Alcohol dependence with withdrawal, unspecified (principal); E87.2 Acidosis; F41.9 Anxiety disorder, unspecified; Z20.828 Contact with and (suspected) exposure to other viral communicable diseases
CPT/HCPCS: 36415; 71045; 80048; 80053; 80307; 81003; 81015; 82010; 82330; 82553; 82803; 83690; 84484; 84703; 85025; 87635; 93005; J1650; J2060; J2405; J3411; J7042; U0003

== ENCOUNTER 2022-07-07 17:19 | Inpatient (IN) | payer SELFPAY ==
[2022-07-07] MEDS ORDERED: Ondansetron PF 4 MG/2 ML Vial ONE (17:42)
[2022-07-07 17:49] LABS: #Lymphocytes 0.7 thou/uL (1.20-3.40); #Monocytes 1.1 thou/uL (0.11-0.59); #Neutrophils 13.5 thou/uL (1.40-6.50); %Basophils 0.1 % (0.0-1.0); %Eosinophils 0.2 % (0.0-10.0); %Lymphocytes 4.5 % (21.0-51.0); %Monocytes 7.3 % (0.0-10.0); Hemoglobin 13.7 g/dL (12.0-16.0); Mean Corpuscular HGB CONC 33.4 g/dL (32.0-36.0); Mean Corpuscular Hemoglobin 34.3 pg (27.0-31.0); Mean Platelet Volume 7.4 fL (7.4-10.4); Platelet Count 134 10x3/uL (130-400); White Blood Cell (WBC) Count 15.4 10x3/uL (4.8-10.8)
[2022-07-07 18:19] LABS: ALT (SGPT) 95 U/L (8-55); AST (SGOT) 112 U/L (5-34); Alkaline Phosphatase 71 U/L (40-110); Anion Gap 37 mmol/L (10-20); BUN (Urea Nitrogen) 20 mg/dL (7.0-18.7); CK (CPK) 84 U/L (29-168); Calc. Creatinine Clearance 0 mL/min (70-130); Calcium 9.1 mg/dL (7.8-10.44); Chloride 92 mmol/L (98-107); Estimated GFR 67; Globulin 4.1 g/dL (2.4-3.5); Glucose 187 mg/dL (70-105); Lipase 34 U/L (8-78); Magnesium 1.3 mg/dL (1.6-2.6); Potassium 3.8 mmol/L (3.5-5.1); Protein, Total 9.1 g/dL (6.0-8.3); Sodium 133 mmol/L (136-145)
[2022-07-07 18:38] LABS: CKMB 1.5 ng/mL (0-6.6)
[2022-07-07 18:43] LABS: Carbon Dioxide 8 mmol/L (22-29)
[2022-07-07] MEDS ORDERED: Benzonatate 100 MG CAP ONE ×2 (18:47→20:14)
[2022-07-07] MEDS ORDERED: Ketorolac Tromethamine 30 MG/ML VIAL ONE (18:47)
[2022-07-07] MEDS ORDERED: Benzonatate 100 MG CAP PO SCH (19:00)
[2022-07-07] MEDS ORDERED: Cefepime 2 GM VIAL ONE (20:14)
[2022-07-07] MEDS ORDERED: Acetaminophen 500 MG TAB ONE (20:14)
[2022-07-07 20:20] LABS: Bacteria/HPF 4+ HPF (None Seen); Bilirubin Negative (Negative); Blood, Urine 1+ (Negative); Clarity Turbid (Clear); Glucose, Urine (Dipstick) Normal (Negative); Ketone, Urine 150 mg/dL (Negative); Leukocyte 500 Leu/uL (Negative); Nitrite Negative (Negative); Protein, Urine (Dipstick) 70 mg/dL (Neg-Trace); Specific Gravity, Urine 1.012 (1.002-1.036); Urobilinogen Normal mg/dL (Less than 2)
[2022-07-07 21:22] LABS: Lactic Acid 1.3 mmol/L (0.5-2.2)
[2022-07-07 21:57] VITALS: BMI 20.9
[2022-07-07] MEDS ORDERED: Ondansetron ODT 4 MG TAB PO PRN (22:44)
[2022-07-07] MEDS ORDERED: Acetaminophen 650 MG Suppository PR PRN (22:44)
[2022-07-07] MEDS ORDERED: Ondansetron PF 4 MG/2 ML Vial IVP PRN (22:44)
[2022-07-07] MEDS: Sodium Chloride 0.9% 1,000 ML IV SCH (23:05)
[2022-07-07 23:40] LABS: Troponin I 0.044 ng/mL (< 0.028)
[2022-07-07 23:47] LABS: Anion Gap 26 mmol/L (10-20); BUN (Urea Nitrogen) 15 mg/dL (7.0-18.7); Calc. Creatinine Clearance 59 mL/min (70-130); Calcium 7.5 mg/dL (7.8-10.44); Carbon Dioxide 9 mmol/L (22-29); Chloride 102 mmol/L (98-107); Estimated GFR 74; Glucose 123 mg/dL (70-105); Sodium 133 mmol/L (136-145)
[2022-07-08 00:11] LABS: Bilirubin Negative (Negative); Blood, Urine Trace (Negative); Clarity Clear (Clear); Glucose, Urine (Dipstick) Normal (Negative); Ketone, Urine Greater than 150 mg/dL (Negative); Leukocyte 75 Leu/uL (Negative); Nitrite Negative (Negative); Protein, Urine (Dipstick) 30 mg/dL (Neg-Trace); RBC/HPF 0-3 HPF (0-3); Specific Gravity, Urine 1.013 (1.002-1.036); Squamous Epithelial 0-3 HPF (0-3); Urobilinogen Normal mg/dL (Less than 2); pH, Urine 6.5 (5.0-9.0)
[2022-07-08 00:13] LABS: Bacteria/HPF 1+ HPF (None Seen)
[2022-07-08 00:14] LABS: Urine Culture Reflex Yes Yes
[2022-07-08 00:33] LABS: SARS-CoV-2 NAA Rapid Test Not Detected (NotDetected)
[2022-07-08] MEDS ORDERED: Metoprolol Tartrate 5 MG/5 ML VIAL IVP PRN (00:39)
[2022-07-08] MEDS: Promethazine HCl 25 MG/ML VIAL IM PRN ×2 (00:54→05:26)
[2022-07-08] MEDS: Lorazepam 0.5 MG TAB PO PRN (01:12)
[2022-07-08] MEDS ORDERED: Ondansetron ODT 4 MG TAB PO PRN (01:19)
[2022-07-08] MEDS ORDERED: Lorazepam 1 MG TAB PO PRN (01:19)
[2022-07-08] MEDS ORDERED: Lorazepam 2 MG/ML VIAL IM PRN (01:19)
[2022-07-08] MEDS ORDERED: Electrolyte Replacement Protocol 1 EACH FS SCH ×2 (01:30)
[2022-07-08 01:41] LABS: Base Excess (BEa) -16.2 mEq/L (-2.0 to +3.0); Calcium, Ionized (arterial) 1.04 mmol/L (1.12-1.30); Carboxyhemoglobin (COHb) 0.5 gm% (0.0-3.0); Hemoglobin (Hb) 12.2 g/dL (12.0-16.0); O2 Tension (PaO2), arterial 105.6 mmHg (80.0-100.0); Potassium - ABG Lab 3.67 mmol/L (3.70-5.30); pH, Arterial 7.27 (7.35-7.45)
[2022-07-08 01:42] LABS: Pregnancy Test - Urine (BHCG) Negative (Negative); Pregu Control Background? CLEAR/WHITE (CLR/WHITE); Pregu Control Bar Appear? YES (CONTROL BAR); Specific Gravity 1.012 (1.002-1.036)
[2022-07-08 01:50] LABS: Amphetamine Not Detected (NotDetected); Barbiturates Screen Not Detected (NotDetected); Benzodiazepine Screen Not Detected (NotDetected); Cocaine Metabolite Screen Not Detected (NotDetected); Methadone Not Detected (NotDetected); Methamphetamine Not Detected (NotDetected); Opiate Screen Not Detected (NotDetected); Oxycodone Screen Not Detected (NotDetected); Phencyclidine (PCP) Not Detected (NotDetected); THC/Cannabinoid Screen Not Detected (NotDetected); Tricyclic Screen Not Detected (NotDetected)
[2022-07-08 01:54] LABS: Actual Bicarbonate (HCO3a) 8.5 mEq/L (22-28)
[2022-07-08 01:55] LABS: Puncture Site RRA
[2022-07-08] MEDS ORDERED: Magnesium Sulfate In Water 4 GM in Premix Bag 1 BAG IVPB SCH (02:00)
[2022-07-08 02:10] LABS: Phosphorus 1.1 mg/dL (2.3-4.7)
[2022-07-08] MEDS: Thiamine HCl 200 MG/2 ML VIAL SLOW IVP SCH (02:12)
[2022-07-08] MEDS: Lorazepam 1 MG TAB PO SCH ×4 (02:12→20:31)
[2022-07-08] MEDS: PHOS-NAK 1 PKT PACK PO SCH ×4 (03:05→14:15)
[2022-07-08 04:38] LABS: Hemoglobin A1c 4.6 % (4.0-6.0)
[2022-07-08 05:00] LABS: #Lymphocytes 0.7 thou/uL (1.20-3.40); #Monocytes 1.3 thou/uL (0.11-0.59); #Neutrophils 10.1 thou/uL (1.40-6.50); %Eosinophils 0.2 % (0.0-10.0); %Lymphocytes 5.3 % (21.0-51.0); %Monocytes 10.9 % (0.0-10.0); %Neutrophils 83.6 % (42.0-75.0); Hemoglobin 11.8 g/dL (12.0-16.0); Mean Corpuscular Hemoglobin 35.6 pg (27.0-31.0); Mean Platelet Volume 7.9 fL (7.4-10.4); Platelet Count 99 10x3/uL (130-400); Platelet Morphology Comment Appears Decreased; White Blood Cell (WBC) Count 12.1 10x3/uL (4.8-10.8)
[2022-07-08 05:03] LABS: Anion Gap 26 mmol/L (10-20); BUN (Urea Nitrogen) 14 mg/dL (7.0-18.7); Calc. Creatinine Clearance 61 mL/min (70-130); Calcium 7.6 mg/dL (7.8-10.44); Chloride 99 mmol/L (98-107); Estimated GFR 78; Glucose 111 mg/dL (70-105); Magnesium 2.4 mg/dL (1.6-2.6); Potassium 3.5 mmol/L (3.5-5.1); Sodium 130 mmol/L (136-145)
[2022-07-08 05:09] LABS: Carbon Dioxide 9 mmol/L (22-29)
[2022-07-08] MEDS: Sodium Chloride 0.9% 1,000 ML IV SCH (05:26)
[2022-07-08] MEDS ORDERED: Potassium Chloride 20 MEQ TAB PO SCH (06:00)
[2022-07-08] MEDS ORDERED: CEFEPIME HCL IN DEXTROSE 5 % 1 GM/50 ML BAG IVPB SCH (07:45)
[2022-07-08] MEDS ORDERED: Cefepime 1 GM VIAL ONE (08:33)
[2022-07-08] MEDS: Pantoprazole 40 MG VIAL IVP SCH (08:47)
[2022-07-08] MEDS: Cefepime 1 GM in Sodium Chloride 0.9% 100 ML IVPB SCH ×2 (08:47→20:31)
[2022-07-08] MEDS: Folic Acid 1 MG TAB PO SCH (08:49)
[2022-07-08] MEDS: Multivit, Therapeutic 1 TAB PO SCH (08:49)
[2022-07-08 09:43] LABS: Base Excess -16.6 mEq/L (-2.0 to +3.0); Calcium, Ionized (venous) 0.98 mmol/L (1.16-1.32); Chloride (VBG) 97 mmol/L (98-106); Hemoglobin (Hb) 13.2 g/dL (11.7-16.0); Potassium (VBG) 3.24 mmol/L (3.70-5.30); Sodium 132.2 mmol/L (133-146)
[2022-07-08 09:44] LABS: pH (venous) 7.17 (7.32-7.43)
[2022-07-08 09:45] LABS: Actual Bicarbonate (HCO3v) 11 mEq/L (22-28)
[2022-07-08] MEDS ORDERED: Potassium Phosphate 30 MMOL in Sodium Chloride 0.9% 250 ML 250 ML IVPB SCH (10:00)
[2022-07-08] MEDS: Enoxaparin Sodium 40 MG/0.4 ML SYRINGE SC SCH (10:58)
[2022-07-08] MEDS: Sodium Bicarbonate 150 MEQ in Dextrose 5% in Water 1,000 ML IV SCH ×2 (10:58→20:30)
[2022-07-08] MEDS ORDERED: Lactated Ringer's 1,000 ML IV SCH (13:00)
[2022-07-08 13:20] LABS: Anion Gap 25 mmol/L (10-20); BUN (Urea Nitrogen) 16 mg/dL (7.0-18.7); CK (CPK) 638 U/L (29-168); Calc. Creatinine Clearance 54 mL/min (70-130); Calcium 7.3 mg/dL (7.8-10.44); Carbon Dioxide 10 mmol/L (22-29); Chloride 99 mmol/L (98-107); Estimated GFR 67; Glucose 144 mg/dL (70-105); Lipase 54 U/L (8-78); Potassium 3.3 mmol/L (3.5-5.1); Sodium 131 mmol/L (136-145)
[2022-07-08 18:36] LABS: Anion Gap 18 mmol/L (10-20); BUN (Urea Nitrogen) 13 mg/dL (7.0-18.7); CK (CPK) 620 U/L (29-168); Calc. Creatinine Clearance 62 mL/min (70-130); Calcium 7.3 mg/dL (7.8-10.44); Carbon Dioxide 19 mmol/L (22-29); Chloride 97 mmol/L (98-107); Estimated GFR 79; Glucose 142 mg/dL (70-105); Potassium 2.8 mmol/L (3.5-5.1); Sodium 131 mmol/L (136-145)
[2022-07-08] MEDS: Potassium Chloride 20 MEQ TAB PO SCH (20:35)
[2022-07-08] MEDS ORDERED: Ibuprofen 200 MG TAB PO PRN (23:45)
[2022-07-09] MEDS ORDERED: Lorazepam 1 MG TAB PO PRN (01:19)
[2022-07-09] MEDS: Potassium Chloride 20 MEQ TAB PO SCH ×2 (01:24→04:59)
[2022-07-09] MEDS: Lorazepam 1 MG TAB PO SCH ×4 (01:24→20:33)
[2022-07-09] MEDS: Thiamine HCl 200 MG/2 ML VIAL SLOW IVP SCH (01:24)
[2022-07-09] MEDS: Sodium Bicarbonate 150 MEQ in Dextrose 5% in Water 1,000 ML IV SCH (04:07)
[2022-07-09 04:58] LABS: #Lymphocytes 0.7 thou/uL (1.20-3.40); #Monocytes 0.9 thou/uL (0.11-0.59); #Neutrophils 4.2 thou/uL (1.40-6.50); %Eosinophils 0.1 % (0.0-10.0); %Monocytes 14.9 % (0.0-10.0); %Neutrophils 72.9 % (42.0-75.0); Mean Corpuscular HGB CONC 34.5 g/dL (32.0-36.0); Mean Corpuscular Hemoglobin 34.7 pg (27.0-31.0); Mean Platelet Volume 8.4 fL (7.4-10.4); Platelet Count 97 10x3/uL (130-400); Red Blood Cell (RBC) Count 3.16 mill/uL (4.20-5.40); White Blood Cell (WBC) Count 5.8 10x3/uL (4.8-10.8)
[2022-07-09 05:08] LABS: Anion Gap 16 mmol/L (10-20); BUN (Urea Nitrogen) 11 mg/dL (7.0-18.7); Calc. Creatinine Clearance 76 mL/min (70-130); Calcium 7.6 mg/dL (7.8-10.44); Carbon Dioxide 28 mmol/L (22-29); Chloride 94 mmol/L (98-107); Estimated GFR 102; Glucose 175 mg/dL (70-105); Magnesium 1.4 mg/dL (1.6-2.6); Sodium 135 mmol/L (136-145)
[2022-07-09 05:11] LABS: Phosphorus Less than 1.0 mg/dL (2.3-4.7)
[2022-07-09] MEDS ORDERED: Potassium Phosphate 30 MMOL in Sodium Chloride 0.9% 250 ML 250 ML IVPB SCH (06:00)
[2022-07-09] MEDS ORDERED: Magnesium Sulfate In Water 4 GM in Premix Bag 1 BAG IVPB SCH (06:15)
[2022-07-09] MEDS: Dextrose 5 % And 0.9 % NaCl 1,000 ML IV SCH ×2 (06:50→14:36)
[2022-07-09] MEDS: Cefepime 1 GM in Sodium Chloride 0.9% 100 ML IVPB SCH (07:59)
[2022-07-09] MEDS: Pantoprazole 40 MG VIAL IVP SCH (08:02)
[2022-07-09] MEDS: Folic Acid 1 MG TAB PO SCH (08:02)
[2022-07-09] MEDS: Multivit, Therapeutic 1 TAB PO SCH (08:02)
[2022-07-09] MEDS: Enoxaparin Sodium 40 MG/0.4 ML SYRINGE SC SCH (08:57)
[2022-07-09] MEDS: Acetaminophen 325 MG TAB PO PRN (11:18)
[2022-07-09] MEDS: Benzonatate 100 MG CAP PO PRN (14:34)
[2022-07-09] MEDS: Cefepime 2 GM in Sodium Chloride 0.9% 100 ML IVPB SCH (20:28)
[2022-07-10] MEDS ORDERED: Lorazepam 1 MG TAB PO PRN (01:19)
[2022-07-10] MEDS: Dextrose 5 % And 0.9 % NaCl 1,000 ML IV SCH ×4 (02:11→22:36)
[2022-07-10] MEDS: Thiamine HCl 200 MG/2 ML VIAL SLOW IVP SCH (02:12)
[2022-07-10] MEDS: Lorazepam 0.5 MG TAB PO SCH ×4 (02:17→20:34)
[2022-07-10 05:35] LABS: Anion Gap 13 mmol/L (10-20); BUN (Urea Nitrogen) 9 mg/dL (7.0-18.7); Calc. Creatinine Clearance 111 mL/min (70-130); Calcium 7.9 mg/dL (7.8-10.44); Carbon Dioxide 23 mmol/L (22-29); Chloride 104 mmol/L (98-107); Estimated GFR 117; Glucose 128 mg/dL (70-105); Sodium 137 mmol/L (136-145)
[2022-07-10 05:55] LABS: Hemoglobin 10.7 g/dL (12.0-16.0); Mean Corpuscular HGB CONC 33.9 g/dL (32.0-36.0); Mean Corpuscular Hemoglobin 34.7 pg (27.0-31.0); Platelet Count 100 10x3/uL (130-400); Red Blood Cell (RBC) Count 3.09 mill/uL (4.20-5.40); White Blood Cell (WBC) Count 4.4 10x3/uL (4.8-10.8)
[2022-07-10 05:56] LABS: Band 8 % (5-11); Hypochromia SLIGHT = 6-15 cells (100X) (0-5/hpf); Lymphocytes 25 % (21-51); MDiff Complete? YES; Monocytes 4 % (0-10); Neutrophil 63 % (42-75); Platelet Morphology Comment Appears Decreased
[2022-07-10] MEDS: Acetaminophen 325 MG TAB PO PRN (06:26)
[2022-07-10] MEDS ORDERED: Potassium Chloride 20 MEQ TAB PO SCH (08:00)
[2022-07-10 08:45] LABS: Phosphorus 1.4 mg/dL (2.3-4.7)
[2022-07-10] MEDS: Folic Acid 1 MG TAB PO SCH (08:47)
[2022-07-10] MEDS: Pantoprazole 40 MG VIAL IVP SCH (08:47)
[2022-07-10] MEDS: Enoxaparin Sodium 40 MG/0.4 ML SYRINGE SC SCH (08:47)
[2022-07-10] MEDS: guaiFENesin ER 600 MG TAB PO SCH ×2 (08:47→20:33)
[2022-07-10] MEDS: Multivit, Therapeutic 1 TAB PO SCH (08:48)
[2022-07-10] MEDS: Cefepime 2 GM in Sodium Chloride 0.9% 100 ML IVPB SCH ×2 (08:48→20:37)
[2022-07-10] MEDS ORDERED: FLU VACC QS2022-23(6MOS UP)/PF 60 MCG/0.5 ML SYRINGE IM ONE (09:00)
[2022-07-10] MEDS: PHOS-NAK 1 PKT PACK PO SCH ×3 (11:48→21:48)
[2022-07-10 14:13] LABS: Potassium 3.4 mmol/L (3.5-5.1)
[2022-07-10] MEDS ORDERED: Potassium Phosphate 30 MMOL in Sodium Chloride 0.9% 250 ML 250 ML IVPB SCH (16:45)
[2022-07-10 20:34] LABS: Troponin I 0.335 ng/mL (< 0.028)
[2022-07-10] MEDS ORDERED: Electrolyte Replacement Protocol 1 EACH FS SCH (20:45)
[2022-07-10 20:49] LABS: Magnesium 1.2 mg/dL (1.6-2.6)
[2022-07-10] MEDS ORDERED: Communication Order-Pharmacy FS ONE (20:53)
[2022-07-10] MEDS ORDERED: Nitroglycerin 0.4 MG TAB (25 Tab Bottle) SL PRN (20:53)
[2022-07-10] MEDS ORDERED: Aspirin 325 mg Enteric Coated Tablet PO SCH (21:00)
[2022-07-10] MEDS ORDERED: Enoxaparin Sodium 60 MG/0.6 ML SYRINGE SC SCH (21:15)
[2022-07-10] MEDS ORDERED: Magnesium Sulfate In Water 4 GM in Premix Bag 1 BAG IVPB SCH (21:15)
[2022-07-10 21:19] LABS: Potassium 3.6 mmol/L (3.5-5.1)
[2022-07-10] MEDS ORDERED: Magnesium 2 GM/50 ML(in water) 2 GM in Premix Bag 1 BAG IVPB SCH (21:30)
[2022-07-10] MEDS: Nitroglycerin 2% Ointment 1 INCH/1 GM Packet TOP SCH (21:54)
[2022-07-11 00:13] LABS: Critical Call Chem Troponin I RESULT DECREASING; Troponin I 0.259 ng/mL (< 0.028)
[2022-07-11] MEDS: PHOS-NAK 1 PKT PACK PO SCH (01:19)
[2022-07-11] MEDS ORDERED: Lorazepam 0.5 MG TAB PO PRN (01:19)
[2022-07-11 02:14] LABS: Hemoglobin 11.9 g/dL (12.0-16.0); Mean Corpuscular HGB CONC 35.5 g/dL (32.0-36.0); Mean Corpuscular Hemoglobin 36.6 pg (27.0-31.0); Mean Platelet Volume 7.7 fL (7.4-10.4); Platelet Count 145 10x3/uL (130-400); Red Blood Cell (RBC) Count 3.26 mill/uL (4.20-5.40); White Blood Cell (WBC) Count 4.9 10x3/uL (4.8-10.8)
[2022-07-11 02:34] LABS: Band 4 % (5-11); Eosinophils 3 % (0-10); Lymphocytes 34 % (21-51); MDiff Complete? YES; Macrocytosis SLIGHT = 6-15 cells (100X) (0-5/hpf); Monocytes 15 % (0-10); Myelocyte 1 % (0-0); Neutrophil 42 % (42-75); Ovalocytes SLIGHT = 2-5 cells (100X) (0-1/hpf); Platelet Morphology Comment Appears Adequate
[2022-07-11 02:37] LABS: Critical Call Chem Troponin I RESULT DECREASING; Troponin I 0.244 ng/mL (< 0.028)
[2022-07-11 02:52] LABS: Anion Gap 16 mmol/L (10-20); BUN (Urea Nitrogen) 8 mg/dL (7.0-18.7); Calc. Creatinine Clearance 99 mL/min (70-130); Carbon Dioxide 20 mmol/L (22-29); Chloride 103 mmol/L (98-107); Estimated GFR 114; Sodium 135 mmol/L (136-145)
[2022-07-11 02:53] LABS: Calcium 8.4 mg/dL (7.8-10.44); Glucose 131 mg/dL (70-105)
[2022-07-11 03:08] LABS: Magnesium 2.5 mg/dL (1.6-2.6); Phosphorus 4.6 mg/dL (2.3-4.7)
[2022-07-11] MEDS: Nitroglycerin 2% Ointment 1 INCH/1 GM Packet TOP SCH ×3 (06:35→22:18)
[2022-07-11] MEDS: Dextrose 5 % And 0.9 % NaCl 1,000 ML IV SCH (08:00)
[2022-07-11] MEDS: Multivit, Therapeutic 1 TAB PO SCH (09:39)
[2022-07-11] MEDS: Thiamine 100 MG TAB PO SCH (09:39)
[2022-07-11] MEDS: Folic Acid 1 MG TAB PO SCH (09:39)
[2022-07-11] MEDS: Enoxaparin Sodium 60 MG/0.6 ML SYRINGE SC SCH ×2 (09:39→20:51)
[2022-07-11] MEDS: Cefepime 2 GM in Sodium Chloride 0.9% 100 ML IVPB SCH ×2 (09:39→20:51)
[2022-07-11] MEDS: Pantoprazole 40 MG VIAL IVP SCH (09:40)
[2022-07-11] MEDS: Dextrose 5%-Lactated Ringers 1,000 ML IV SCH ×2 (10:45→20:48)
[2022-07-11] MEDS: Benzonatate 100 MG CAP PO PRN (21:06)
[2022-07-11] MEDS: Acetaminophen 325 MG TAB PO PRN (22:20)
[2022-07-12] MEDS: Acetaminophen 325 MG TAB PO PRN (05:14)
[2022-07-12] MEDS: Nitroglycerin 2% Ointment 1 INCH/1 GM Packet TOP SCH ×3 (05:14→21:50)
[2022-07-12] MEDS: Dextrose 5%-Lactated Ringers 1,000 ML IV SCH ×3 (05:15→22:48)
[2022-07-12 05:53] LABS: Anion Gap 15 mmol/L (10-20); BUN (Urea Nitrogen) 8 mg/dL (7.0-18.7); Calc. Creatinine Clearance 107 mL/min (70-130); Calcium 9.1 mg/dL (7.8-10.44); Carbon Dioxide 22 mmol/L (22-29); Chloride 102 mmol/L (98-107); Estimated GFR 116; Glucose 105 mg/dL (70-105); Potassium 3.4 mmol/L (3.5-5.1); Sodium 136 mmol/L (136-145)
[2022-07-12 06:16] LABS: Band 3 % (5-11); Hemoglobin 11.3 g/dL (12.0-16.0); Hypochromia SLIGHT = 6-15 cells (100X) (0-5/hpf); Lymphocytes 33 % (21-51); MDiff Complete? YES; Mean Corpuscular HGB CONC 33.7 g/dL (32.0-36.0); Mean Platelet Volume 7.7 fL (7.4-10.4); Monocytes 22 % (0-10); Neutrophil 40 % (42-75); Platelet Count 177 10x3/uL (130-400); Platelet Morphology Comment Appears Adequate; Reactive Lymphocytes 2 % (0-10); Red Blood Cell (RBC) Count 3.22 mill/uL (4.20-5.40); White Blood Cell (WBC) Count 3.6 10x3/uL (4.8-10.8)
[2022-07-12] MEDS ORDERED: Potassium Chloride 20 MEQ TAB PO SCH (08:30)
[2022-07-12] MEDS: Multivit, Therapeutic 1 TAB PO SCH (09:25)
[2022-07-12] MEDS: Folic Acid 1 MG TAB PO SCH (09:25)
[2022-07-12] MEDS: Enoxaparin Sodium 60 MG/0.6 ML SYRINGE SC SCH ×2 (09:26→21:49)
[2022-07-12] MEDS: Cefepime 2 GM in Sodium Chloride 0.9% 100 ML IVPB SCH (09:26)
[2022-07-12] MEDS: Pantoprazole 40 MG VIAL IVP SCH (09:26)
[2022-07-12] MEDS: Metoprolol Tartrate 25 MG TAB PO SCH ×2 (09:27→21:49)
[2022-07-12] MEDS: Thiamine 100 MG TAB PO SCH (09:42)
[2022-07-12] MEDS: Morphine 4 MG/ML VIAL SLOW IVP PRN (09:51)
[2022-07-12 14:40] LABS: Potassium 3.8 mmol/L (3.5-5.1)
[2022-07-12] MEDS: Lorazepam 0.5 MG TAB PO PRN (21:49)
[2022-07-13] MEDS: Acetaminophen 325 MG TAB PO PRN (04:46)
[2022-07-13 05:32] LABS: Phosphorus 4.6 mg/dL (2.3-4.7)
[2022-07-13 05:34] LABS: Anion Gap 13 mmol/L (10-20); BUN (Urea Nitrogen) 11 mg/dL (7.0-18.7); Calc. Creatinine Clearance 97 mL/min (70-130); Calcium 9.9 mg/dL (7.8-10.44); Carbon Dioxide 27 mmol/L (22-29); Chloride 99 mmol/L (98-107); Estimated GFR 114; Glucose 115 mg/dL (70-105); Magnesium 1.2 mg/dL (1.6-2.6); Potassium 3.6 mmol/L (3.5-5.1); Sodium 135 mmol/L (136-145)
[2022-07-13] MEDS ORDERED: Lidocaine 1% PF 5 ML VIAL ONE (06:29)
[2022-07-13] MEDS ORDERED: Heparin 10,000 UNITS/ 10 ML VIAL ONE (06:29)
[2022-07-13] MEDS ORDERED: Nitroglycerin 100MG/250ML BOT 250 ML ONE (06:29)
[2022-07-13] MEDS ORDERED: Verapamil 5 MG/2 ML VIAL ONE (06:29)
[2022-07-13] MEDS ORDERED: Lidocaine 1% (PF) 30 ML VIAL ONE (07:14)
[2022-07-13] MEDS ORDERED: Midazolam HCl 2 mg/2 ml Vial ONE (07:15)
[2022-07-13] MEDS ORDERED: Fentanyl 100 MCG/2 ML VIAL ONE (07:16)
[2022-07-13] MEDS: Nitroglycerin 2% Ointment 1 INCH/1 GM Packet TOP SCH (07:17)
[2022-07-13] MEDS ORDERED: Sodium Chloride 0.9% 200 ML IV PRN (07:43)
[2022-07-13] MEDS ORDERED: Nitroglycerin 0.4 MG TAB (25 Tab Bottle) SL PRN (07:43)
[2022-07-13] MEDS ORDERED: Acetaminophen/Codeine 30-300mg Tablet PO PRN ×2 (07:43)
[2022-07-13] MEDS ORDERED: Magnesium Sulfate In Water 4 GM in Premix Bag 1 BAG IVPB SCH (08:00)
[2022-07-13] MEDS: Morphine 4 MG/ML VIAL SLOW IVP PRN ×2 (08:32→12:29)
[2022-07-13] MEDS: Metoprolol Tartrate 25 MG TAB PO SCH (08:34)
[2022-07-13] MEDS: Folic Acid 1 MG TAB PO SCH (08:35)
[2022-07-13] MEDS: Multivit, Therapeutic 1 TAB PO SCH (08:35)
[2022-07-13] MEDS: Pantoprazole 40 MG VIAL IVP SCH (08:36)
[2022-07-13] MEDS: Enoxaparin Sodium 60 MG/0.6 ML SYRINGE SC SCH (08:36)
[2022-07-13] MEDS: Thiamine 100 MG TAB PO SCH (08:42)
[2022-07-13 09:46] LABS: Band 8 % (5-11); Eosinophils 4 % (0-10); Hemoglobin 11.3 g/dL (12.0-16.0); Lymphocytes 29 % (21-51); MDiff Complete? YES; Mean Corpuscular HGB CONC 34.7 g/dL (32.0-36.0); Mean Corpuscular Hemoglobin 36.1 pg (27.0-31.0); Mean Platelet Volume 7.7 fL (7.4-10.4); Monocytes 20 % (0-10); Neutrophil 37 % (42-75); Platelet Count 225 10x3/uL (130-400); Platelet Morphology Comment Appears Adequate; RBC Distribution Width 11.1 % (11.5-14.5); RBC Morphology Normal; Reactive Lymphocytes 1 % (0-10); Red Blood Cell (RBC) Count 3.12 mill/uL (4.20-5.40); White Blood Cell (WBC) Count 3.6 10x3/uL (4.8-10.8)
[2022-07-13] MEDS ORDERED: Iopamidol 370 76% 100 ML VIAL ONE (11:01)
[2022-07-13 12:11] VITALS: BP 107/67; TEMP 98.3
[2022-07-13] MEDS: Dextrose 5%-Lactated Ringers 1,000 ML IV SCH (12:31)
== END 2022-07-13 16:20 | disposition home or self-care (01) | DRG 871 ==
LOC: ERS 17:19 → SJJU 20:54 → 2NO 07-08 00:26
PROVIDERS: ADMIT Internal Medicine; ATTEND Internal Medicine
PROC: 3E03329 Introduction of Other Anti-infective into Peripheral Vein, Percutaneous Approach (ICD-10-PCS; 2022-07-07)
PROC: 4A023N7 Measurement of Cardiac Sampling and Pressure, Left Heart, Percutaneous Approach (ICD-10-PCS; principal; 2022-07-13)
PROC: B2151ZZ Fluoroscopy of Left Heart using Low Osmolar Contrast (ICD-10-PCS; 2022-07-13)
PROC: B2111ZZ Fluoroscopy of Multiple Coronary Arteries using Low Osmolar Contrast (ICD-10-PCS; 2022-07-13)
DX: A41.9 Sepsis, unspecified organism (principal); I21.A1 Myocardial infarction type 2; F10.239 Alcohol dependence with withdrawal, unspecified; N39.0 Urinary tract infection, site not specified; E87.20 Acidosis, unspecified; E87.1 Hypo-osmolality and hyponatremia; M62.82 Rhabdomyolysis; I10 Essential (primary) hypertension; F41.9 Anxiety disorder, unspecified; Z20.822 Contact with and (suspected) exposure to COVID-19; E83.39 Other disorders of phosphorus metabolism; E87.6 Hypokalemia; E83.42 Hypomagnesemia
CPT/HCPCS: 36415; 36600; 71045; 80048; 80053; 80306; 80307; 81003; 81015; 81025; 82010; 82306; 82550; 82553; 82693; 82805; 83036; 83605; 83690; 83735; 83930; 83935; 84100; 84443; 84484; 85025; 87040; 87086; 93005; 93010; 93306; 93458; 96361; 96374; 96375; 99152; C1760; C1769; C1894; C9113; J0692; J1644; J1650; J1885; J2001; J2250; J2270; J2405; J2550; J3010; J3411; J3475; J3490; J7042; J7050; J7070; J7120; U0002